=== PATIENT | female | born 1970 | race Caucasian/White ===

== ENCOUNTER → 2016-10-09 | Outpatient (CLI) | payer BC | LOC: BRMIMAGING 08:33 | PROVIDERS: ATTEND Allergy & Immunology Allergy | DX: K82.4 Cholesterolosis of gallbladder (principal); K76.0 Fatty (change of) liver, not elsewhere classified | CPT/HCPCS: 76700-PO ==

== ENCOUNTER → 2017-03-28 | Outpatient (CLI) | payer BC | LOC: BMCIMAGING 15:58 | PROVIDERS: ATTEND Internal Medicine | DX: J40 Bronchitis, not specified as acute or chronic (principal) ==

== ENCOUNTER → 2017-04-27 | Outpatient (CLI) | payer BC | LOC: BRMIMAGING 08:31 | PROVIDERS: ATTEND Allergy & Immunology Allergy | DX: K80.20 Calculus of gallbladder without cholecystitis without obstruction (principal); R93.2 Abnormal findings on diagnostic imaging of liver and biliary tract | CPT/HCPCS: 76705-PO ==

== ENCOUNTER 2017-06-05 05:40 | Day surgery (SDC) | payer BC ==
--- NOTE | 2017-06-04 19:29 | GHP ---
[f rep st] PREOP HISTORY AND PHYSICAL DATE OF ADMISSION: 06/05/2017 DATE OF PLANNED SURGERY: 06/05/2016 on the gynecology service. 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 However, the patient has never been on progesterone. The patient recently has been having postmenopausal bleeding after s witching her estrogen from Divigel to estrogen patches. She had an ultrasound that revealed a lining of 7 mm and an endometrial biopsy was performed in November, which was normal. She tried to reduce her estrogen patch, but continued to have bleeding with the unopposed estrogen. The patient continues to decline progesterone and now needs a dilation and curettage for more a thorough evaluation of the en dometrium. The patient was advised as to the risks and benefits of the dilation and curettage and th e consent form was signed. PAST MEDICAL HISTORY: The patient was recently with TMJ pain after a dental procedure in April wit h limited jaw mobility. Currently she is being evaluated and has had a normal CT scan. The patient has Lexie's, osteopenia, depression, and premature ovarian failure. PAST SURGICAL HISTORY: Breast reduction in 2007 and dilation and curettage in 2013 in [place]. PAST OBSTETRICAL HISTORY: Negative. PAST GYNECOLOGICAL HISTORY: Pap smears are all negative in the past with her last in August, which was negative, but positive HPV. The patient's menses stopped abruptly at the age of 32 and had significant labile mood. The patient was started on hormone replacement at that time and it wors ened her mood. Since then, she has been taking Divigel estrogen cream at 2 mg a day. She was advise d to switch that to the patch and reduce the patch amount. She changed to the estradiol patch in Sep after insurance was no longer able to cover it. She began having bleeding in October. The endometria l biopsy was performed with a moderate amount of tissue obtained. Ultrasound at that point showed an endometrial thickness of 9 mm. The patient dropped her patch level down to 0.05 mg from 0.1 mg in steffanie. The patient continued to have some light dysfunctional bleeding and the repeat ultrasound shows a lining of 7 mm. The patient at this point, wants to proceed with a dilation and curettage to thin out the lining and ensure it is normal, and then the plan is to proceed with an estradiol patch of 0 .0375. The patient is adamantly refusing progesterone, as it significantly worsens her mood disorder . ALLERGIES: The patient has allergies to codeine causing a rash. Sulfa causing anaphylaxis and soy. CURRENT MEDICATIONS: The various nofu-jxa-yhxedey supplements. Synthroid 88 mcg daily, Lamictal 200 mg daily, Trintellix 5 mg daily, Yuvafem vaginally twice a week, and estradiol patch 0.05 mg 2 times a week. SOCIAL HISTORY: The patient is a nonsmoker. She has approximately 2 alcohol drinks a week. Denies marijuana. No other drug use. REVIEW OF SYSTEMS: A 10-point review of systems was performed and the patient has pertinent positive s and negatives as listed above. PHYSICAL EXAMINATION: GENERAL: At the time of preoperative, the patient is a well-developed, overwe ight white female in no physical distress. HEENT: Currently, she has limited jaw mobility, but no o bvious pain. VITAL SIGNS: Clinically afebrile. Blood pressure 102/68, weight 162 pounds. LUNGS: Clear to auscultation bilaterally. CARDIOVASCULAR: Regular rate and rhythm. ABDOMEN: Soft, nontender. PELVIC: Exam reveals a nonten jesi, mobile uterus. No adnexal masses. EXTREMITIES: Nontender with no edema. IMAGING STUDIES: Last ultrasound done in April of 2017 revealed a uterus 7 x 3.4 x 3.4 cm. The ut erus has an arcuate appearance with both endometrial linings of approximately 7 mm. Bilaterally, the ovaries were normal. ASSESSMENT: Postmenopausal bleeding on unopposed estrogen with lining 7 mm. PLAN: To proceed with a dilation and curettage to evaluate the lining more fully and then to reduce the estrogen patches. /[id number]/MODL
[2017-06-05] MEDS ORDERED: LR 1,000 ML IV ONE (05:50)
[2017-06-05] MEDS ORDERED: LIDOCAINE 1% 2 ML INJ ID PRN (05:50)
[2017-06-05] MEDS ORDERED: LIDOCAINE 1% 2 ML INJ ONE (06:12)
[2017-06-05] MEDS ORDERED: LIDOCAINE 1% 300 MG/30 ML SDV ONE (06:17)
[2017-06-05] MEDS ORDERED: LIDO/EPI 2%** Not for Epidural 20 ML MDV ONE (06:17)
[2017-06-05] MEDS ORDERED: SILVER NITRATE APPLICATOR 1 APPL TP ONE (06:17)
[2017-06-05 06:39] LABS: HEMATOCRIT 37.5 % (38.0-47.0); HEMOGLOBIN 13.1 g/dL (12.6-16.3); MEAN CELL HEMOGLOBIN 31.1 pg (27.9-34.1); MEAN CELL HEMOGLOBIN CONCENTR. 34.9 g/dL (32.4-36.7); MEAN CELL VOLUME 89.1 fL (81.5-99.8); RED BLOOD CELL COUNT 4.21 10^6/uL (4.18-5.33); RED CELL DISTRIBUTION WIDTH 12.9 % (11.5-15.2)
[2017-06-05] MEDS ORDERED: MIDAZOLAM 2 MG/2 ML VIAL IVP ONE (07:08)
--- NOTE | 2017-06-05 07:11 | PDANEPAE ---
ANE History of Present Illness thickened endometrium s/f D&C ANE Past Medical History - Cardiovascular History Hx Hypertension: No Hx Arrhythmias: No Hx Chest Pain: No Hx Coronary Artery / Peripheral Vascular Disease: No Hx CHF / Valvular Disease: No Hx Palpitations: No - Pulmonary History Hx COPD: No Hx Asthma/Reactive Airway Disease: No Hx Recent Upper Respiratory Infection: No Hx Oxygen in Use at Home: No Hx Sleep Apnea: No Sleep Apnea Screening Result - Last Documented: Positive - Neurologic History Hx Cerebrovascular Accident: No Hx Seizures: No Hx Dementia: No - Endocrine History Hx Diabetes: Yes Endocrine History Comment: HYPOTHYROID - Renal History Hx Renal Disorders: No - Liver History Hx Hepatic Disorders: No Hepatic History Comment: GALL STONES - ASYMPTOMATIC - Neurological & Psychiatric Hx Hx Neurological and Psychiatric Disorders: Yes Neurological / Psychiatric History Comment: DEPRESSION - Cancer History Hx Cancer: No Cancer History Comment: MGUS - PRE CANCEROUS CONDITION - Congenital Disorder History Hx Congenital Disorders: No - GI History Hx Gastrointestinal Disorders: No - Other Health History Other Health History: COMMON VARIABLE IMMUNE DEFICIENCY - DOES NOT PRODUCE ANTIBODIES - IGC INFUSIONS MTHLY. MGUS - BLOOD CELL TYPE ABNORMALITY. IDIOPATHIC PERIPHERAL NEUROPATHY - Chronic Pain History Chronic Pain: Yes (NEUROPATHY LEGS & BURSITIS HIPS) - Surgical History Prior Surgeries: SINUS SURGERY X3. BREAST REDUCTION. D&C ANE Review of Systems Review of Systems: - Exercise capacity METS (RN): 4 METS ANE Patient History - Allergies Allergies/Adverse Reactions: codeine Allergy (Verified 05/09/17 12:07) Hives soy Allergy (Verified 05/09/17 12:07) LIPS SWELL Sulfa (Sulfonamide Antibiotics) Allergy (Verified 05/09/17 12:07) RESPIRATORY SWELLING - Home Medications Home medications: home medication list seen and reviewed Home Medications: Advil 05/09/17 [Last Taken 05/22/17] Estradiol 05/09/17 [Last Taken 06/04/17] Estrogens,Conjugated 05/09/17 [Last Taken 06/04/17] Herbals/Supplements -Info Only 05/09/17 [Last Taken 05/29/17] Lamictal 05/09/17 [Last Taken 06/04/17] Nasal Eva Sinus 05/09/17 [Last Taken 05/22/17] Synthroid 05/09/17 [Last Taken 06/04/17] Trintellix 05/09/17 [Last Taken 06/04/17] - NPO status NPO Status: no food or drink >8 hours NPO Since - Liquids (Date): 06/04/17 NPO Since - Liquids (Time): 23:00 NPO Since - Solids (Date): 06/04/17 NPO Since - Solids (Time): 19:00 - Anes Hx Anes Hx: post operative nausea, slow to awaken from anesthesia - Smoking Hx Smoking Status: Never smoked - Alcohol Use Alcohol Use: Rarely - Family Anes Hx Family Hx Anesthesia Complications: ADOPTED ANE Labs/Vital Signs - Labs Result Diagrams: 06/05/17 06:22 - Vital Signs Blood Pressure: 115/73 Heart Rate: 71 Respiratory Rate: 16 O2 Sat (%): 95 Height: 157.48 cm Weight: 72.575 kg ANE Physical Exam - Airway Neck exam: FROM Mallampati Score: Class 1 Mouth exam: normal dental/mouth exam - Pulmonary Pulmonary: no respiratory distress - Cardiovascular Cardiovascular: regular rate and rhythym - ASA Status ASA Status: II ANE Anesthesia Plan Anesthesia Plan: GA with mask
--- NOTE | 2017-06-05 07:13 | PDHPUP ---
History & Physical Update H&P update statement: This history and physical update is based on an assessment of the patient which was completed after admission or registration (within 24 hours), but prior to the surgery/procedure.
[2017-06-05] MEDS ORDERED: ceFAZolin 1 GM in NS 100 ML IV ONE (07:14)
[2017-06-05] MEDS ORDERED: PROPOFOL/EMULSION 500 MG/50 ML BOTTLE IV ONE (07:25)
[2017-06-05] MEDS ORDERED: fentaNYL 100 MCG/2 ML INJ ONE ×2 (07:25→08:13)
[2017-06-05] MEDS ORDERED: ONDANSETRON 4 MG/2 ML VIAL ONE (07:26)
[2017-06-05] MEDS ORDERED: DEXAMETHASONE 4 MG/ML VIAL ONE ×2 (07:26)
[2017-06-05] MEDS ORDERED: NALOXONE HCL 0.4 MG/ML INJ IVP PRN (07:44)
[2017-06-05] MEDS ORDERED: ONDANSETRON 4 MG/2 ML VIAL IVP PRN (07:44)
[2017-06-05] MEDS ORDERED: METOCLOPRAMIDE 10 MG/2 ML VIAL IVP PRN (07:44)
[2017-06-05] MEDS ORDERED: OXYCODONE/APAP 5/325 TAB PO PRN (07:44)
[2017-06-05] MEDS ORDERED: LR 500 ML IV PRN (07:44)
[2017-06-05] MEDS ORDERED: PROMETHAZINE HCL 25 MG/ML INJ IVP PRN (07:44)
[2017-06-05] MEDS ORDERED: PHENYLEPHRINE HCL 100 MCG/ML SYR IVP PRN (07:44)
[2017-06-05] MEDS ORDERED: HYDROCODONE/APAP 5/325 TAB PO PRN (07:44)
[2017-06-05] MEDS ORDERED: LABETALOL HCL 5 MG/ML 20 ML MDV IVP PRN (07:44)
[2017-06-05] MEDS ORDERED: ACETAMINOPHEN 500 MG TAB PO PRN (07:44)
[2017-06-05] MEDS ORDERED: ALBUTEROL 3 ML DEYVIAL IH PRN (07:44)
[2017-06-05] MEDS ORDERED: DEXAMETHASONE 4 MG/ML VIAL IVP PRN (07:44)
[2017-06-05] MEDS ORDERED: MEPERIDINE 25 MG/ML SYR IVP PRN (07:44)
--- NOTE | 2017-06-05 08:01 | POSTOPPROG ---
Post Op Note Date of Operation: 06/05/17 Surgeon: Mara Mayer Anesthesiologist: Dagoberto Alvarado MD Anesthesia: IV Sedation (general) Pre-op Diagnosis: post menopausal bleeding, unopposed estrogen Post-op Diagnosis: same, Indication: 47 y/o with POF on unopposed E2 for yrs, DUB since November Procedure: Dilation and Currettage Findings: nl vagina and cx, dilation to 7.5 Jinny, sharp curretting - sm amt tissue Inf/Abcess present in the surg proc area at time of surgery?: No Depth: Organ Space EBL: Minimal Specimen(s): endometrial currettings
[2017-06-05] MEDS: fentaNYL 100 MCG/2 ML INJ IVP PRN ×2 (08:14→09:02)
--- NOTE | 2017-06-05 09:06 | POSTANESTH ---
Post Anesthetic Evaluation Cardiovascular Status: Normal, Stable Respiratory Status: Normal, Stable Level of Consciousness/Mental Status: Can Participate in Eval Pain Control: Adequate, Prn Tx Ordered Nausea/Vomiting Control: Adequate, Prn Tx Ordered Complications Possibly Related to Anesthesia: None Noted
[2017-06-05 09:39] VITALS: RESP 16
[2017-06-05 09:44] VITALS: BP 96/56; PULSE 58; TEMP 97.9; O2SAT 95
--- NOTE | 2017-06-05 13:23 | GOP ---
[f rep st] OPERATIVE REPORT DATE OF OPERATION: 06/05/2017 SURGEON: Mara Mayer MD ANESTHESIA: General IV sedation. ANESTHESIOLOGIST: Dagoberto Alvarado MD PREOPERATIVE DIAGNOSIS: Postmenopausal bleeding on unopposed estrogen. POSTOPERATIVE DIAGNOSIS: Postmenopausal bleeding on unopposed estrogen. PROCEDURE PERFORMED: Rogers dilatation and curettage FINDINGS: ESTIMATED BLOOD LOSS: Minimal. INDICATIONS: Patient is a 47-year-old, G0, white female, long-term estrogen hormone replacement afte r premature ovarian failure at the age of 32. The patient's hormones were adjusted in the spring and the patient started having postmenopausal bleeding on estrogen patches. She had an endometrial biop sy in November that was normal. On ultrasound, her endometrium was 9 mm, which reduced to 7 mm after a d rop in estrogen patch dose. The dysfunctional bleeding has continued and now the patient is advised to have a D and C. Risks and benefits discussed and the consent form signed. DESCRIPTION OF PROCEDURE: The patient was taken to the operating room where, following satisfactory general mask anesthesia, the patient was placed in dorsal lithotomy position. The patient had urinat ed prior to coming to the operating room. The patient's perineum and vagina were prepped and the pat ient placed in usual position for vaginal procedure. The patient had SCDs on her lower extremities f or DVT prophylaxis. The patient also received a dose of 1 g of Ancef prior to the procedure. A ster ile speculum was placed within the vagina. An atraumatic grasper was placed on the anterior lip of t he cervix. Gentle traction was applied to the cervix. There was little descent. The cervix was slo wly dilated with Hegar dilators up to #7.5. Uterus was anteflexed. Sharp curetting then was perform ed in the endometrial cavity. There was good uterine cry felt throughout the cavity. A thorough cur etting was performed into the wide endometrial cavity. There was suspicion of an arcuate cavity on u ltrasound. There was little tissue obtained. The tissue was collected and sent to pathology for patti luation. The atraumatic grasper was taken off the cervix, and there was no bleeding. The vagina was wiped clean and there was scant bleeding. The patient was cleaned off and taken out of position and then was transferred and taken out of the operating room in stable condition. There were no complic ations. /[id number]/MODL
== END 2017-06-05 10:09 | disposition home or self-care (01) ==
LOC: FSGY 05:40
PROVIDERS: ATTEND Obstetrics & Gynecology
PROC: 0UDB7ZX Extraction of Endometrium, Via Natural or Artificial Opening, Diagnostic (ICD-10-PCS; principal; 2017-06-05 07:15)
PROC: 0U7C7ZZ Dilation of Cervix, Via Natural or Artificial Opening (ICD-10-PCS; principal; 2017-06-05 07:15)
DX: N84.0 Polyp of corpus uteri (principal); Z79.818 Long term (current) use of other agents affecting estrogen receptors and estrogen levels
CPT/HCPCS: J0171; J0690; J1100; J2250; J2405; J2704; J3010

== ENCOUNTER 2017-10-11 05:48 | Observation (INO) | payer OTHER ==
--- NOTE | 2017-10-11 00:37 | GHP ---
[f rep st] PREOP HISTORY AND PHYSICAL Amended report DATE OF SURGERY The patient is slated for surgery on 10/11/2017, on the gynecology service. 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 The patient has refused progesterone due to symptomatic worsening of her mood disorder when tried on this medication years ago. The patient began having dysfunctional uterine bleeding last year after the patient was changed from her Divigel estrogen cream to estrogen patches. Due to continued bleeding, an ultrasound was performed and the endometrial lining was at 9 mm. The patient had an endometrial biopsy which was normal, and the patch level was reduced. Follow- up ultrasound showed the lining decreased to 7 mm. However, due to continued bleeding, the patient had a D and C in June 2017 which was negative except for fragmented polyp. Dysfunctional bleeding started shortly after the D and C, and the patient bled continuously up to mid August. The patient has been so aggravated by the bleeding, she wants to proceed with definitive management for removal of her uterus, tubes, and ovaries. Risks and benefits were discussed with the patient and the consent form signed. We discussed various approaches with surgery, and I feel the patient is a good candidate for the total laparoscopic hysterectomy with removal of both tubes and ovaries as the patient has had a history of premature ovarian failure. PAST MEDICAL HISTORY: Patient with a history of Lexie's, osteopenia, depression, premature ovarian failure. The patient recently has had TMJ pain after a dental procedure in April but that spontaneously improved. Recent severe ear infection which has persisted for approximately 3 months and the patient has had multiple rounds of antibiotics.. PAST SURGICAL HISTORY: Breast reduction in 2007, a D and C in 2013 in [place], and a D and C performed in June 2017. PAST OBSTETRIC HISTORY: Negative. PAST GYNECOLOGIC HISTORY: The patient's Pap smears have all been negative in the past with the last one in August 2016. The patient's most recent ultrasound to evaluate the dysfunctional bleeding was on July 24, at which time the lining appeared approximately 6 mm and the uterus was small at 6 x 3 x 5 cm. There was a very small fibroid approximately 1.2 cm. Bilaterally, the patient's ovaries are normal and small. ALLERGIES: The patient is allergic to codeine causing a rash, sulfa causing anaphylaxis, and soy products. CURRENT MEDICATIONS: Synthroid 88 mcg daily, Lamictal 200 mg daily, Trintellix 5 mg daily, Yuvafem vaginally twice a week, and estradiol patches at 0.05 mg twice a week. Recent antibiotic treatments due to an ear infection. Terazol 7 cream recently given to the patient for signs of yeast infection; patient took the last dose yesterday. SOCIAL HISTORY: The patient is a nonsmoker. She has only a small amount of alcohol weekly. Denies marijuana. Denies other drug abuse. REVIEW OF SYSTEMS: A 10-point review of systems performed and positives and negatives noted above. PHYSICAL EXAMINATION: GENERAL: Upon admission, patient is a well-developed, overweight white female in no physical distress. VITAL SIGNS: Weight 177 pounds. Blood pressure 104/68. HEENT: No lymphadenopathy. oropharynx clear. HEART: Regular rate and rhythm. LUNGS: Clear to auscultation bilaterally. ABDOMEN: Soft and nontender. PELVIC: Normal external genitalia. Speculum exam shows a normal cervix. Uterus is mobile and nontender, and the adnexa are normal bilaterally. EXTREMITIES: Nontender, and there is no edema. ASSESSMENT: Continued postmenopausal bleeding on unopposed estrogen. Dilatation and curettage in June 2017 showed fragments of benign polyp with no malignancy. The patient opts now for removal of uterus, tubes, and ovaries due to the continued dysfunctional bleeding. PLAN: Will proceed with a total laparoscopic hysterectomy. Tubes and ovaries will be removed due to history of premature ovarian failure. The patient will be able to continue on the estrogen patch at 0.05 mg twice weekly. The patient will have preoperative antibiotics and will have SCDs on through the surgery. /[id number]/MODL Add acc#, 10/11/17, olivier VILLASEÑOR
[2017-10-11] MEDS ORDERED: ceFAZolin 2 GM/SWFI 2 GM/20 ML SYR IVP ONE (06:10)
[2017-10-11] MEDS ORDERED: LR 1,000 ML IV ONE (06:11)
[2017-10-11] MEDS ORDERED: LIDOCAINE 1% 2 ML INJ ID PRN (06:11)
[2017-10-11] MEDS ORDERED: MIDAZOLAM 2 MG/2 ML VIAL IVP ONE (06:55)
[2017-10-11] MEDS ORDERED: SCOPOLAMINE HYDROBROMIDE 1 MG/3 DAYS PATCH TD ONE (06:57)
--- NOTE | 2017-10-11 06:57 | PDANEPAE ---
ANE History of Present Illness lap. hysterectomy ANE Past Medical History - Cardiovascular History Hx Hypertension: No Hx Arrhythmias: No Hx Chest Pain: No Hx Coronary Artery / Peripheral Vascular Disease: No Hx CHF / Valvular Disease: No Hx Palpitations: No - Pulmonary History Hx COPD: No Hx Asthma/Reactive Airway Disease: No Hx Recent Upper Respiratory Infection: No Hx Oxygen in Use at Home: No Hx Sleep Apnea: No Sleep Apnea Screening Result - Last Documented: Negative - Neurologic History Hx Cerebrovascular Accident: No Hx Seizures: No Hx Dementia: No - Endocrine History Hx Diabetes: No Hypothyroid: Yes Hyperthyroid: No Obesity: mild Endocrine History Comment: HYPOTHYROID - Renal History Hx Renal Disorders: No - Liver History Hx Hepatic Disorders: No Hepatic History Comment: GALL STONES - ASYMPTOMATIC - Neurological & Psychiatric Hx Hx Neurological and Psychiatric Disorders: Yes Neurological / Psychiatric History Comment: DEPRESSION - Cancer History Hx Cancer: No Cancer History Comment: MGUS - PRE CANCEROUS CONDITION - Congenital Disorder History Hx Congenital Disorders: No - GI History Hx Gastrointestinal Disorders: No - Other Health History Other Health History: COMMON VARIABLE IMMUNE DEFICIENCY - DOES NOT PRODUCE ANTIBODIES - IGC INFUSIONS MTHLY. MGUS - BLOOD CELL TYPE ABNORMALITY. IDIOPATHIC PERIPHERAL NEUROPATHY - Chronic Pain History Chronic Pain: Yes (NEUROPATHY LEGS & BURSITIS HIPS) - Surgical History Prior Surgeries: SINUS SURGERY X3. BREAST REDUCTION. D&C ANE Review of Systems Review of systems is: negative Review of Systems: - Exercise capacity METS (RN): 5 METS ANE Patient History - Allergies Allergies/Adverse Reactions: codeine Allergy (Verified 05/09/17 12:07) Hives soy Allergy (Verified 05/09/17 12:07) LIPS SWELL Sulfa (Sulfonamide Antibiotics) Allergy (Verified 05/09/17 12:07) RESPIRATORY SWELLING - Home Medications Home medications: home medication list seen and reviewed Home Medications: Estradiol [Vivelle-Dot 0.05MG (*)] 0.05 mg TD MoTh@0800 05/09/17 [Last Taken 03/19] Levothyroxine [Synthroid 88 mcg (*)] 88 mcg PO DAILY06 05/09/17 [Last Taken 05/19] Sodium Cl Nasal [S[place]yer [place] (*)] 1 spray NS DAILY PRN 05/09/17 [Last Taken ] Vortioxetine Hydrobromide [Brintellix] 10 mg PO DAILY18 05/09/17 [Last Taken 05/19] lamoTRIgine [LamICTAL 100 MG (*)] 200 mg PO DAILY 05/09/17 [Last Taken 10/10/17] Estradiol [Yuvafem] 10 mcg VG MOTU 10/02/17 [Last Taken 10/08/17] Propylene Glycol/Peg 400 [Systane 0.3-0.4% Eye Drops] 1 drop EACHEYE DAILY PRN 10/02/17 [Last Taken Unknown] Triamcinolone Acetonide [Nasacort] 1 spray EACHNARE DAILY PRN 10/02/17 [Last Taken Unknown] - NPO status NPO Since - Liquids (Date): 10/10/17 NPO Since - Liquids (Time): 22:00 NPO Since - Solids (Date): 10/10/17 NPO Since - Solids (Time): 20:00 - Smoking Hx Smoking Status: Never smoked - Family Anes Hx Family Hx Anesthesia Complications: ADOPTED ANE Labs/Vital Signs - Vital Signs Blood Pressure: 128/77 Heart Rate: 67 Respiratory Rate: 14 O2 Sat (%): 94 Height: 157.48 cm Weight: 77.111 kg ANE Physical Exam - Airway Neck exam: FROM Mallampati Score: Class 2 Mouth exam: normal dental/mouth exam, small mouth opening - Pulmonary Pulmonary: no respiratory distress - Cardiovascular Cardiovascular: regular rate and rhythym - ASA Status ASA Status: II ANE Anesthesia Plan Anesthesia Plan: general endotracheal anesthesia
[2017-10-11] MEDS ORDERED: SCOPOLAMINE HYDROBROMIDE 1 MG/3 DAYS PATCH TD SCH (07:00)
[2017-10-11] MEDS ORDERED: fentaNYL 100 MCG/2 ML INJ ONE ×4 (07:02→10:42)
[2017-10-11] MEDS ORDERED: PROPOFOL 200 MG/20 ML VIAL ONE (07:02)
[2017-10-11] MEDS ORDERED: LIDOCAINE 2% 5 ML SDV ONE (07:05)
[2017-10-11] MEDS ORDERED: SUGAMMADEX SODIUM 200 MG/2 ML VIAL IVP ONE (07:11)
[2017-10-11] MEDS ORDERED: ONDANSETRON 4 MG/2 ML VIAL ONE (07:11)
[2017-10-11] MEDS ORDERED: ROCURONIUM 50 MG/5 ML VIAL ONE ×2 (07:11→08:46)
[2017-10-11] MEDS ORDERED: KETOROLAC 30 MG/1 ML SDV ONE (07:11)
[2017-10-11] MEDS ORDERED: DEXAMETHASONE 4 MG/ML VIAL ONE (07:11)
--- NOTE | 2017-10-11 07:24 | PDHPUP ---
History & Physical Update H&P update statement: This history and physical update is based on an assessment of the patient which was completed after admission or registration (within 24 hours), but prior to the surgery/procedure. H&P update: no change in patient's condition since H&P completed
[2017-10-11] MEDS ORDERED: SURGIFLO MATRIX KIT WITH THROMBIN 8ml TP ONE (07:37)
[2017-10-11] MEDS ORDERED: BUPIVACAINE 0.5% 30 ML SDV ONE (07:37)
[2017-10-11] MEDS ORDERED: ONDANSETRON 4 MG/2 ML VIAL IVP PRN (09:28)
[2017-10-11] MEDS ORDERED: oxyCODONE IR 5 MG TAB PO PRN (09:28)
[2017-10-11] MEDS ORDERED: LABETALOL HCL 5 MG/ML 20 ML MDV IVP PRN (09:28)
[2017-10-11] MEDS ORDERED: PROMETHAZINE HCL 25 MG/ML INJ IVP PRN (09:28)
[2017-10-11] MEDS ORDERED: NALOXONE HCL 0.4 MG/ML INJ IVP PRN (09:28)
[2017-10-11] MEDS ORDERED: ALBUTEROL 3 ML DEYVIAL IH PRN (09:28)
[2017-10-11] MEDS ORDERED: LR 500 ML IV PRN (09:28)
[2017-10-11] MEDS ORDERED: ACETAMINOPHEN 500 MG TAB PO PRN (09:28)
[2017-10-11] MEDS ORDERED: HYDROCODONE/APAP 5/325 TAB PO PRN ×2 (09:28→13:19)
[2017-10-11] MEDS ORDERED: POLYETHYLENE GLYCOL 3350 17 GM PKT PO PRN (10:42)
[2017-10-11] MEDS ORDERED: BISACODYL 10 MG SUPP PR PRN (10:42)
[2017-10-11] MEDS ORDERED: MAGNESIUM HYDROXIDE 30 ML UDCUP PO PRN (10:42)
[2017-10-11] MEDS ORDERED: LACTULOSE 20 GM/30 ML UDCUP PO PRN (10:42)
[2017-10-11] MEDS ORDERED: Propylene Glycol/Peg 400 [Systane 0.3-0.4% Eye Drops] 1 DROP EACHEYE PRN (10:43)
[2017-10-11] MEDS ORDERED: Triamcinolone Acetonide [Nasacort] 1 SPRAY EACHNARE PRN (10:43)
[2017-10-11] MEDS ORDERED: FLUCONAZOLE 150 MG TAB PO ONE (10:44)
[2017-10-11] MEDS: fentaNYL 100 MCG/2 ML INJ IVP PRN ×2 (10:46→10:55)
[2017-10-11] MEDS ORDERED: LR 1,000 ML IV SCH (11:00)
[2017-10-11] MEDS ORDERED: HYDROmorphONE/DILAUDID 2 MG/ML INJ ONE (11:09)
[2017-10-11] MEDS: HYDROmorphONE/DILAUDID 2 MG/ML INJ IVP PRN ×4 (11:11→13:45)
[2017-10-11] MEDS ORDERED: oxyCODONE IR 5 MG TAB ONE (11:50)
[2017-10-11] MEDS ORDERED: IBUPROFEN 600 MG TAB PO SCH (12:00)
[2017-10-11] MEDS ORDERED: SODIUM CL NASAL 45 ML BTL EACHNARE PRN (12:46)
[2017-10-11] MEDS ORDERED: HYDROmorphONE/DILAUDID 1 MG/ML INJ IVP PRN (13:20)
--- NOTE | 2017-10-11 13:26 | POSTOPPROG ---
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 bld after change ERT with neg EMBx and DnC, can't siobhan P4 Procedure: TLH, BSO, cystoscopy Findings: nl small uterus, streak ovaries. nl tubes. scarred cul de sac and LLQ/bow Inf/Abcess present in the surg proc area at time of surgery?: No Depth: Organ Space EBL: 50-100 Complications: none but due to scarring in cul de sac , unable to see left ureter- cystoscopy and nl urethral orifices. Specimen(s): uterus, tubes, ovaries
[2017-10-11] MEDS: KETOROLAC 30 MG/1 ML SDV IVP SCH ×2 (16:29→22:53)
[2017-10-11] MEDS: HYDROCODONE/APAP 5/325 TAB PO PRN ×2 (16:35→20:38)
[2017-10-11] MEDS ORDERED: Vortioxetine Hydrobromide [Trintellix] 10 MG PO SCH (18:00)
--- NOTE | 2017-10-11 18:59 | SOAPPROG ---
SOAP Progress Note Assessment/Plan: Assessment: POD 0 s/p TLH, BSO Plan: Doing well. routine care 10/11/17 18:56 Subjective: Pt doing much better with pain control - using [place] and Toradol. No nausea - siobhan crackers and water. Not OOB yet but not dizzy. very drowsy. Objective: Vital Signs Temp Pulse Resp BP Pulse Ox 36.7 C 70 16 88/58 L 96 10/11/17 15:15 10/11/17 15:15 10/11/17 15:15 10/11/17 15:15 10/11/17 15:15 10/10/17 10/11/17 10/12/17 05:59 05:59 05:59 Intake Total 3700 Output Total 1680 Balance 2019 Physical Exam - Physical Exam General Appearance: WD/WN Abdomen: non-tender (approp post op tenderness), soft, other (bandaides x 2 and umb drsg CDI) Pelvic Exam: vaginal bleeding (scant) Skin: normal color, warm/dry Extremities: non-tender Neuro/Psych: normal mood/affect (but very drowsy) ICD10 Worksheet Patient Problems: Problems Problem Status Onset S/P BSO (bilateral salpingo-oophorectomy) Acute S/P cystoscopy Acute S/P laparoscopic hysterectomy Acute Post-menopausal bleeding Acute
[2017-10-11] MEDS: SENNOSIDES/DOCUSATE SODIUM TAB PO SCH (20:37)
[2017-10-11] MEDS: MICONAZOLE NITRATE 2% 14 GM CREAM TP SCH (20:38)
[2017-10-12] MEDS: HYDROCODONE/APAP 5/325 TAB PO PRN ×2 (03:32→09:27)
[2017-10-12] MEDS: KETOROLAC 30 MG/1 ML SDV IVP SCH ×3 (03:40→17:29)
[2017-10-12] MEDS: HYDROmorphONE/DILAUDID 2 MG/ML INJ IVP PRN (05:21)
[2017-10-12] MEDS ORDERED: LEVOTHYROXINE 88 MCG TAB PO SCH (06:00)
[2017-10-12 06:47] LABS: PLATELET COUNT 222 10^3/uL (150-400)
[2017-10-12] MEDS: MICONAZOLE NITRATE 2% 14 GM CREAM TP SCH (06:51)
[2017-10-12] MEDS ORDERED: PATCH REMOVAL 1 EA PATCH TD ONE (06:56)
[2017-10-12] MEDS ORDERED: ESTRADIOL VIVELLE 0.05 MG PATCH TD SCH (08:00)
[2017-10-12] MEDS ORDERED: lamoTRIgine 100 MG TAB PO SCH (09:00)
[2017-10-12] MEDS ORDERED: ENOXAPARIN 30 MG/0.3 ML SYR SC SCH (09:00)
[2017-10-12] MEDS: SENNOSIDES/DOCUSATE SODIUM TAB PO SCH (09:58)
[2017-10-12] MEDS ORDERED: IBUPROFEN 600 MG TAB PO PRN (10:09)
[2017-10-12] MEDS ORDERED: oxyCODONE IR 5 MG TAB PO PRN (12:46)
--- NOTE | 2017-10-12 14:29 | SOAPPROG ---
SOAP Progress Note Assessment/Plan: Assessment: POD 1 s/p TLH, BSO Plan: Doing well. routine care - D/C home 10/11/17 18:56 10/12/17 14:24 Subjective: Pt doing ok. Reports pain and pretty good coverage by pain meds but just changed to OxyIR to reduce the Tyl level. urinating fine. scant bld vaginally. Has felt a little hot and concerned she might be getting infection - also reviewed that her estrogen patch had fallen off prior to admit and estrogen levels likely dropped. no nausea and siobhan reg diet well. Objective: Vital Signs Temp Pulse Resp BP Pulse Ox 36.4 C 61 16 104/63 96 10/12/17 03:35 10/12/17 03:35 10/12/17 03:35 10/12/17 03:35 10/12/17 03:35 Laboratory Results 10/12/17 06:30 10/11/17 10/12/17 10/13/17 05:59 05:59 05:59 Intake Total 3900 Output Total 3580 150 Balance 320 -150 Physical Exam - Physical Exam General Appearance: WD/WN Respiratory: normal breath sounds Cardiac/Chest: regular rate, rhythm Abdomen: non-tender (approp post op tenderness), soft, other (Incisions CDI x3) Pelvic Exam: vaginal bleeding (scant) Skin: normal color, warm/dry Extremities: non-tender, pedal edema (mild) Neuro/Psych: alert, normal mood/affect ICD10 Worksheet Patient Problems: Problems Problem Status Onset S/P cystoscopy Acute S/P BSO (bilateral salpingo-oophorectomy) Acute S/P laparoscopic hysterectomy Acute Post-menopausal bleeding Acute
[2017-10-12 14:54] VITALS: BP 118/74
== END 2017-10-12 16:00 | disposition home or self-care (01) ==
LOC: F3E 05:48 → FOB 12:15
PROVIDERS: ADMIT Obstetrics & Gynecology; ATTEND Obstetrics & Gynecology
DX: N92.4 Excessive bleeding in the premenopausal period (principal); Z87.42 Personal history of other diseases of the female genital tract; E06.3 Autoimmune thyroiditis; M85.80 Other specified disorders of bone density and structure, unspecified site; F32.9 Major depressive disorder, single episode, unspecified; H66.90 Otitis media, unspecified, unspecified ear; D83.9 Common variable immunodeficiency, unspecified; G60.9 Hereditary and idiopathic neuropathy, unspecified; M70.72 Other bursitis of hip, left hip; M70.71 Other bursitis of hip, right hip
CPT/HCPCS: 58571; G0378; J0690; J1100; J1170; J1650; J1885; J2250; J2405; J2704; J3010

== ENCOUNTER 2018-11-30 19:13 | Emergency (ER) | payer OTHER | END 2018-11-30 22:20 | disposition home or self-care (01) ==